=== PATIENT | male | born 1980 | race Caucasian/White ===

== ENCOUNTER 2017-02-26 11:39 | Emergency (ER) | payer OTHER ==
[~2017-02-26] VITALS: Ht 188 cm; Wt 84.8 kg
[2017-02-26] MEDS ORDERED: KEFL500C17 PO (11:48)
[2017-02-26] MEDS ORDERED: OMEP10CASR PO (11:48)
[2017-02-26 14:03] VITALS: BP 124/79
[2017-02-26] MEDS ORDERED: CLEO300C2 PO (14:17)
[2017-02-26] MEDS ORDERED: KETO10TAB PO (14:26)
--- NOTE | 2017-02-27 12:30 | REP ---
LEFT FOOT SERIES: Four views. HISTORY: Left foot swelling. FINDINGS: Four views of the left foot demonstrate overall normal mineralization. Bones joints and soft tissues are unremarkable. IMPRESSION: No acute bony abnormality. Signed by Ramos Joshua MD 02/27/2017 12:40 P
--- NOTE | 2017-02-27 12:38 | REP ---
DUPLEX EXTREMITY VENOUS ULTRASOUND: Left lower extremity. HISTORY: Left lower leg pain and swelling. No known injury. Question DVT. FINDINGS: The deep veins are anechoic and fully compressible from the groin to the popliteal fossa in the left lower extremity. Color flow imaging is homogeneous. Spectral Doppler interrogation demonstrates intact respiratory variation in flow and normal manual augmentation of flow. There is no evidence of deep vein thrombosis. IMPRESSION: Negative left lower extremity duplex venous ultrasound. No evidence of deep vein thrombosis. Signed by Ramos Joshua MD 02/27/2017 12:41 P
== END 2017-02-26 14:33 | disposition home or self-care (01) ==
LOC: M ED 11:39
DX: L03.116 Cellulitis of left lower limb (principal); Z98.84 Bariatric surgery status